=== PATIENT | male | born 1990 | race American Indian/Alaskan Native ===

== ENCOUNTER 2021-07-31 10:04 | Day surgery (SDC) | payer OTHER ==
[~2021-07-31] VITALS: Ht 175.3 cm; Wt 108.5 kg
[~2021-07-31 10:04] MED LIST: IBUP800 PO; LORA10ER PO; MELA3 PO
== END 2021-07-31 12:09 | disposition home or self-care (01) ==
LOC: ORSCSDS 10:04
PROVIDERS: Internal Medicine Gastroenterology
PROC: 0DJD8ZZ Inspection of Lower Intestinal Tract, Via Natural or Artificial Opening Endoscopic (ICD-10-PCS; principal; 2021-07-31 11:15)
DX: R19.4 Change in bowel habit (principal); Z86.010 Personal history of colon polyps; Z83.71 Family history of colonic polyps
CPT/HCPCS: J2704; J7120; U0003